=== PATIENT | male | born 1960 | race Caucasian/White ===

== ENCOUNTER 2021-04-27 10:15 | Inpatient (IN) | payer OTHER ==
[~2021-04-27] VITALS: Ht 180.3 cm; Wt 106.6 kg
[~2021-04-27 10:15] MED LIST: GLYBURIDE 5 MG T5 M1; LISINOPRIL5 MG; LYRICA 50 MG50 M1 PO; METFORMIN HCL500 MG; VICODIN 5-5001 EACH PO
[2021-04-27 10:31] VITALS: BP 100/58
[2021-04-27 11:30] LABS: HEMOGLOBIN 14.9 gm/dL (14.0-18.0); MCH 28.6 pg (26.0-34.0); MCV 86.6 fL (80.0-100.0); MPV 7.6 fl. (7.2-11.1); NUCLEATED RBCS 0 /100WBC; PLATELET COUNT* 373 thou/uL (150-400); WBC 23.4 thou/uL (4.0-11.0)
[2021-04-27 11:51] LABS: CALCIUM 9.7 mg/dL (8.5-10.1); CREATININE 1.1 mg/dL (0.6-1.3); POTASSIUM 4.1 mmol/L (3.5-5.1)
[2021-04-27 11:56] LABS: ALBUMIN 2.9 g/dL (3.4-5.0); TOTAL BILIRUBIN 1.2 mg/dL (<0.1-1.0); TOTAL PROTEIN 8.4 g/dL (6.4-8.2)
[2021-04-27 12:22] LABS: ABSOLUTE LYMPHOCYTES 1.4 thou/uL (0.8-5.3); ABSOLUTE MONOCYTES 1.6 thou/uL (0.0-1.2); ABSOLUTE NEUTROPHILS 20.4 thou/uL (1.6-8.1); PLATELET ESTIMATE ADEQUATE
[2021-04-27 12:23] LABS: ANISOCYTOSIS 1+; LARGE PLATELETS RARE; POIKILOCYTOSIS 1+
--- NOTE | 2021-04-27 16:02 | NUR ---
PT PLACED ON HOSPITAL BED
[2021-04-27 18:46] VITALS: BP 111/57
[2021-04-27 20:30] VITALS: BP 117/56
[2021-04-27] MEDS ORDERED: GABAPENTIN600 M1 PO (20:42)
[2021-04-27] MEDS ORDERED: CARVEDILOL6.25 M1 PO (20:44)
[2021-04-27] MEDS ORDERED: TRULICITY1.5 MG/0.5 PO (20:45)
[2021-04-27] MEDS ORDERED: FUROSEMIDE 20 M20 MG PO (20:47)
[2021-04-27] MEDS ORDERED: VASCEPA1 GM PO (20:48)
[2021-04-28 00:30] VITALS: BP 88/37
[2021-04-28 04:16] LABS: CALCIUM 8.5 mg/dL (8.5-10.1); POTASSIUM 3.7 mmol/L (3.5-5.1)
[2021-04-28 04:17] VITALS: BP 99/63
[2021-04-28 04:23] LABS: ABSOLUTE BASOPHILS 0.1 thou/uL (0.0-0.2); ABSOLUTE EOSINOPHILS 0.1 thou/uL (0.0-0.7); ABSOLUTE LYMPHOCYTES 1.9 thou/uL (0.8-5.3); ABSOLUTE MONOCYTES 1.6 thou/uL (0.0-1.2); ABSOLUTE NEUTROPHILS 13.2 thou/uL (1.6-8.1); BASOPHILS 0.3 %; EOSINOPHILS 0.6 %; HEMATOCRIT 38.4 % (42.0-52.0); LYMPHOCYTES 11.4 %; MCH 28.6 pg (26.0-34.0); MCHC 33.3 g/dL (28.0-37.0); MCV 86.1 fL (80.0-100.0); MONOCYTES 9.5 %; MPV 7.3 fl. (7.2-11.1); NUCLEATED RBCS 0 /100WBC; POLYS 78.2 %; RBC 4.46 mil/uL (4.50-6.00); RDW-CV 13.8 % (10.5-14.5); WBC 16.9 thou/uL (4.0-11.0)
[2021-04-28 04:28] LABS: HEMOGLOBIN 12.8 gm/dL (14.0-18.0); PLATELET COUNT* 282 thou/uL (150-400)
--- NOTE | 2021-04-28 05:02 | NUR ---
PT HAS RIGHT FOOT ELEVATED, DRESSING C/D/I. TYLENOL/NORCO FOR PAIN, HE HAS SLEPT WELL THIS SHIFT. RECEIVED 2X DOSES VANCOMYCIN SCHEDULED. IS ABLE TO AMBULATE TO RESTROOM. ALERT AND ORIENTED, ROOM AIR. REPORTS A HEADACHE WELL AND PAIN 8/10 ON RIGHT FOOT. WILL CONTINUE TO MONITOR.
[2021-04-28 08:00] VITALS: BP 112/63
--- NOTE | 2021-04-28 09:40 | NUR ---
CM ASSESSMENT: PT A&O, INDEPENDENT WITH ADL'S, ACTIVE AND WORKS OUTSIDE THE HOME. PT RESIDES AT HOME WITH SPOUSE. PT USES 0 DME. PT HAS 0 HX OF HH OR SNF. CM D/C PLANNING NEEDS FOR THIS PT ARE TBD AT THIS TIME, BUT MAY INCLUDE IV ABT'S AND HH. CM WILL REMAIN AVAILABLE TO ASSIST AND FOLLOW NEEDED.
--- NOTE | 2021-04-28 10:36 | NUR ---
The patient is alert and orienated x4. Denies pain. Dressing intact to right foot. Call light wihtin reach. No distress noted.
--- NOTE | 2021-04-28 11:26 | NUR ---
Dr Kwon here to see the patient. New orders for MRI today and NPO after midnight. The patient is aware of all new orders. Questionkhurram completed.
--- NOTE | 2021-04-28 14:45 | NUR ---
The MD was made aware of postive blood cultures of strep group b.
--- NOTE | 2021-04-28 15:31 | NUR ---
Family at the bedside. Denies pain. He's sitting in the recliner. No distress noted. Dressing to right foot C/D/I.
[2021-04-28 17:05] VITALS: BP 125/71
[2021-04-28 20:30] VITALS: BP 113/55
[2021-04-29] VITALS: BP 96/56
--- NOTE | 2021-04-29 04:05 | NUR ---
PT REPORTED HEADACHE, DID WELL WITH ZOFRAN AND NORCO BEFORE BED. UP TO RESTROOM ON OWN. NPO SINCE MIDNIGHT. SLEPT WELL ALL SHIFT. RECEIVED ALL MEDS AND ABX ORDERED. SURGERY FOR 8:30 AM
[2021-04-29 04:25] LABS: ABSOLUTE BASOPHILS 0.1 thou/uL (0.0-0.2); ABSOLUTE EOSINOPHILS 0.2 thou/uL (0.0-0.7); ABSOLUTE MONOCYTES 1.3 thou/uL (0.0-1.2); BASOPHILS 0.8 %; EOSINOPHILS 0.9 %; HEMATOCRIT 39.1 % (42.0-52.0); LYMPHOCYTES 11.5 %; MCH 28.2 pg (26.0-34.0); MCHC 33.2 g/dL (28.0-37.0); MONOCYTES 7.3 %; NUCLEATED RBCS 0 /100WBC; PLATELET COUNT* 280 thou/uL (150-400); POLYS 79.5 %; RDW-CV 13.9 % (10.5-14.5); WBC 17.6 thou/uL (4.0-11.0)
[2021-04-29 04:48] LABS: ALBUMIN 2.1 g/dL (3.4-5.0); CALCIUM 8.5 mg/dL (8.5-10.1); CREATININE 0.8 mg/dL (0.6-1.3); POTASSIUM 3.4 mmol/L (3.5-5.1); TOTAL BILIRUBIN 0.6 mg/dL (<0.1-1.0); TOTAL PROTEIN 6.5 g/dL (6.4-8.2)
--- NOTE | 2021-04-29 10:15 | EKG ---
[place] [address] ELECTROCARDIOGRAM REPORT Name: DARRYL MALLOY Room: [address] ADM IN M.R.#: [id number] Admission: 04/27/21 Attend Phys: Vimal Owens, Discharge: Date of : 62 Date of Service: 04/29/21 0816 Report #: [id number] THIS REPORT FOR: //name// [facility] Test Date: 2021-04-29 Test Time: 08:16:55 Pat Name: DARRYL MALLOY Department: Room: [address] Gender: M Lining Vamper: LAVELL : 1960 Requested By: Nash Finch Order Number: [id number] Reading MD: Elpidio Montiel Measurements Intervals [place] Rate: 74 P: 38 [place]: 162 QRS: -32 QRSD: 108 T: 17 QT: 399 QTc: 443 Interpretive Statements Sinus rhythm Ventricular premature complex Left axis deviation Low voltage, precordial leads Abnormal R-wave progression, early transition Compared to ECG 09/27/2009 16:50:43 Ventricular premature complex(es) now present Low QRS voltage now present Electronically Signed On 04-29-2021 10:14:59 CDT by Elpidio Montiel [email or web address] <ELECTRONICALLY SIGNED> By: Elpidio Montiel MD, [facility] 04/29/21 1014 5 5 Elpidio Montiel MD, [facility] /EPI
--- NOTE | 2021-04-29 10:58 | NUR ---
The patient returned to the floor.Denies pain. alert. Call light within reach.
[2021-04-29 11:01] VITALS: BP 117/57
--- NOTE | 2021-04-29 14:28 | NUR ---
informed of labs results.
[2021-04-29 16:28] VITALS: BP 117/56
[2021-04-29 21:11] VITALS: BP 111/64
[2021-04-30 02:45] VITALS: BP 117/68
[2021-04-30 06:02] VITALS: BP 106/62
[2021-04-30 06:03] LABS: MCH 28.2 pg (26.0-34.0); MCHC 33.4 g/dL (28.0-37.0); MCV 84.5 fL (80.0-100.0); RBC 4.62 mil/uL (4.50-6.00); RDW-CV 13.7 % (10.5-14.5); WBC 15.3 thou/uL (4.0-11.0)
[2021-04-30 06:22] LABS: ALBUMIN 1.9 g/dL (3.4-5.0); CALCIUM 8.3 mg/dL (8.5-10.1); CREATININE 0.7 mg/dL (0.6-1.3); POTASSIUM 3.4 mmol/L (3.5-5.1); TOTAL BILIRUBIN 0.6 mg/dL (<0.1-1.0); TOTAL PROTEIN 6.4 g/dL (6.4-8.2)
--- NOTE | 2021-04-30 07:02 | NUR ---
PATIENT HAS REMAINED ALERT AND ORIENTED X 4 THROUGHOUT THE SHIFT AND RESTING QUIETLY ON HOURLY ROUNDS. DRESSING AND SURGICAL SHOE CLEAN AND DRY RIGHT FOOT. TOLERABLE PAIN AND DID NOT WANT INTERVENTION. VITAL SIGNS STABLE. MEDS/ANTIBIOTICS PER ORDER. FALL PRECAUTIONS IN PLACE. CONTINUE TO MONITOR.
[2021-04-30 08:00] VITALS: BP 117/61
--- NOTE | 2021-04-30 11:22 | NUR ---
The patient is alert. Able to make needs known. Denies pain. Transfers to the BSC. Dressing to right foot is intact. He remains non weight bearing to the right foot.
[2021-04-30 16:00] VITALS: BP 134/74
--- NOTE | 2021-04-30 16:07 | NUR ---
POC UPDATE: PT WILL REMAIN HOSPITALIZED THROUGH THE WEEKEND, PICC LINE WILL BE PLACED ID [employer] UTILITY CLERK ABX WILL BE NEEDED D/T "SIGNIFICANT INFECTION."
[2021-05-01 01:00] VITALS: BP 111/66
[2021-05-01 05:45] VITALS: BP 114/59
--- NOTE | 2021-05-01 05:50 | NUR ---
PT STATES HE SLEPT WELL OVERNIGHT. UP INDEP TO BSC TO VOID, BM LAST NIGHT. NWB TO RLE, POST OP SHOE WHEN AWAKE. AOX4, ABLE TO USE SAUCEDO TO MAKE NEEDS KNOWN. RU SL PICC, AM LAB DRAWN AND ABX INFUSED ORDERED.HS ACCUCHECK 275, INSULIN GIVEN ORDERED. LUDIN CDI TO RLE.
[2021-05-01 08:00] VITALS: BP 134/48
[2021-05-01 20:00] VITALS: BP 121/57
[2021-05-02 03:39] VITALS: BP 115/64
[2021-05-02 06:38] LABS: HEMATOCRIT 36.5 % (42.0-52.0); HEMOGLOBIN 12.4 gm/dL (14.0-18.0); MCH 28.8 pg (26.0-34.0); MCHC 33.8 g/dL (28.0-37.0); MPV 7.4 fl. (7.2-11.1); RBC 4.3 mil/uL (4.50-6.00); RDW-CV 14.2 % (10.5-14.5); WBC 10.4 thou/uL (4.0-11.0)
[2021-05-02 06:54] LABS: ALBUMIN 1.8 g/dL (3.4-5.0); CALCIUM 8.2 mg/dL (8.5-10.1); CREATININE 0.6 mg/dL (0.6-1.3); MAGNESIUM 1.9 mg/dL (1.8-2.4); POTASSIUM 3.3 mmol/L (3.5-5.1); TOTAL BILIRUBIN 0.4 mg/dL (<0.1-1.0); TOTAL PROTEIN 6.3 g/dL (6.4-8.2)
[2021-05-02 09:00] VITALS: BP 112/45
[2021-05-02 11:57] VITALS: BP 110/57
[2021-05-02 16:16] VITALS: BP 115/49
[2021-05-02 20:00] VITALS: BP 102/46
[2021-05-03 03:20] VITALS: BP 105/80
--- NOTE | 2021-05-03 05:20 | NUR ---
PT ALERT ORIENTED. UP WITH ASSIST. MED SURG STATUS. WOUND TO R FOOT. NPO AT MN FOR I&D. HYDROCODONE GIVEN HS FOR PAIN.
[2021-05-03 06:13] VITALS: BP 105/80
--- NOTE | 2021-05-03 07:02 | NUR ---
PT TO SURGERY FOR I&D OF R FOOT. NPO SINCE MN.
[2021-05-03 08:15] VITALS: BP 119/64
[2021-05-03 08:35] LABS: ABSOLUTE BASOPHILS 0.1 thou/uL (0.0-0.2); ABSOLUTE EOSINOPHILS 0.2 thou/uL (0.0-0.7); ABSOLUTE LYMPHOCYTES 2.5 thou/uL (0.8-5.3); ABSOLUTE MONOCYTES 0.7 thou/uL (0.0-1.2); ABSOLUTE NEUTROPHILS 7.2 thou/uL (1.6-8.1); BASOPHILS 0.6 %; EOSINOPHILS 1.9 %; HEMATOCRIT 33.3 % (42.0-52.0); HEMOGLOBIN 12.1 gm/dL (14.0-18.0); LYMPHOCYTES 23.3 %; MCH 30.6 pg (26.0-34.0); MCHC 36.4 g/dL (28.0-37.0); MONOCYTES 6.9 %; MPV 7.3 fl. (7.2-11.1); NUCLEATED RBCS 0 /100WBC; PLATELET COUNT* 267 thou/uL (150-400); POLYS 67.3 %; RBC 3.97 mil/uL (4.50-6.00); WBC 10.6 thou/uL (4.0-11.0)
[2021-05-03 08:45] LABS: ALBUMIN 1.7 g/dL (3.4-5.0); CREATININE 0.7 mg/dL (0.6-1.3); POTASSIUM 3.1 mmol/L (3.5-5.1); TOTAL BILIRUBIN 0.4 mg/dL (<0.1-1.0); TOTAL PROTEIN 6.1 g/dL (6.4-8.2)
--- NOTE | 2021-05-03 15:06 | NUR ---
POC UPDATE: PODIATRY FOLLOWING. PT HAVING 3RD DEBRIDEMENT. PT WILL POSS D/C WITH HH AND WOUND CARE NEEDS.
[2021-05-03 16:00] VITALS: BP 117/62
[2021-05-04] VITALS (7 sets, daily range): BP systolic 89–123; BP diastolic 41–62
[2021-05-04 06:49] LABS: ABSOLUTE BASOPHILS 0.1 thou/uL (0.0-0.2); ABSOLUTE LYMPHOCYTES 1.5 thou/uL (0.8-5.3); ABSOLUTE MONOCYTES 0.7 thou/uL (0.0-1.2); ABSOLUTE NEUTROPHILS 8.9 thou/uL (1.6-8.1); BASOPHILS 0.8 %; EOSINOPHILS 0.2 %; HEMATOCRIT 36.1 % (42.0-52.0); HEMOGLOBIN 11.9 gm/dL (14.0-18.0); LYMPHOCYTES 13.5 %; MCH 28.1 pg (26.0-34.0); MCHC 32.9 g/dL (28.0-37.0); MCV 85.3 fL (80.0-100.0); MONOCYTES 6.3 %; MPV 7.1 fl. (7.2-11.1); NUCLEATED RBCS 0 /100WBC; PLATELET COUNT* 299 thou/uL (150-400); POLYS 79.2 %; RBC 4.23 mil/uL (4.50-6.00); RDW-CV 13.7 % (10.5-14.5); WBC 11.3 thou/uL (4.0-11.0)
[2021-05-04 07:03] LABS: PREALBUMIN 11.2 mg/dL (18.0-35.7)
[2021-05-04 07:04] LABS: ALBUMIN 1.9 g/dL (3.4-5.0); CALCIUM 8.2 mg/dL (8.5-10.1); CREATININE 0.8 mg/dL (0.6-1.3); POTASSIUM 3.4 mmol/L (3.5-5.1); TOTAL BILIRUBIN 0.4 mg/dL (<0.1-1.0); TOTAL PROTEIN 6.6 g/dL (6.4-8.2)
--- NOTE | 2021-05-04 08:50 | NUR ---
PATIENT SLEPT MOST OF THE NIGHT. IV ANTIBIOTICS WERE GIVEN ORDERED. PATIENT HAD NO COMPLAINTS OF PAIN. WOUND VAC REMAINS TO RIGHT FOOT. WILL CONTINUE TO MONITOR.
--- NOTE | 2021-05-04 13:11 | PATH ---
[address] [address] PATHOLOGY RPT PROCEDURE Name: ALBERTO CURRY Room: [address] IN .R.#: [id number] Admission: 04/27/21 Date of : 62 Discharge: Report #: [id number] Path Case #: [id number] LCA Accession Number: [id number] . 01 Material submitted: . foot - TISSUE RIGHT FOOT. Modifiers: right . 01 Clinical history: . SEPSIS, RIGHT FOOT CELLULITIS, RT FOOT DIABETIC ULCER . 02 Diagnosis: Tissue right foot: - Acutely inflamed and necrotic benign fibrofatty/fibrovascular connective tissue. (JANICE/db; 05/03/2021) LBQ 05/03/2021 1805 Local . 02 Electronically signed: . Aden Wilkins MD, Pathologist NPI- [id number] . 01 Gross description: . Received in formalin labeled "Alberto Curry, tissue right foot" are multiple irregular, nagel brown fragments of soft tissue measuring in aggregate 2.1 x 1.1 x 0.9 cm. Specimen is sectioned to reveal a dusky, nagel-brown cut surface. Specimen is entirely submitted in cassette A1.([facility]; 04/30/2021) . GZA/GZA 04/30/2021 0906 Local . 02 Pathologist provided ICD-10: M79.9 . 02 CPT . 327355 Specimen Comment: A courtesy copy of this report has been sent to [phone] Specimen Comment: [phone], Specimen Comment: Report sent to , DR WHITAKER / DR MARCELO Performed at: 01 [facility] [address], [place] [address] MD Heath Perez MD Phone: [phone] Performed at: 02 [facility] [address], [place], [place] [address] MD Aden Wilkins MD Phone: [phone]
--- NOTE | 2021-05-04 15:12 | NUR ---
WOUND NURSE: PATIENT SEEN TO ADDRESS WOUND VAC CORRECTLY IN PLACE AND WAS ORIGINALLY PLACED IN [facility] PER DR. SHANT DPM. PATIENT TO HAVE VAC DRESSING CHANGE TOMORROW. PATIENT INFORMED BY THIS NURSE. WILL ADDRESS LT FOOT WOUND FURTHER WHEN NONREMOVABLE DRESSING CHANGED TOMORROW.
--- NOTE | 2021-05-04 16:02 | NUR ---
ASSUMED PT CARE AT 0730. PT IS A&OX4, COOPERATIVE AND PLEASANT. VISITING MOST OF THE DAY AND ASSITED PT WITH BEDBATH. DRESSING TO R FOOT IS DRY AND INTACT AND WOUND VAC IS FUNCTIONING PROPERLY. ASSESSMENT COMPLETED. MEDICATIONS ADMINISTERED ORDERED. PT VOICES NO CONCERNS AT HIS TIME.
--- NOTE | 2021-05-04 16:07 | NUR ---
POC UPDATE: NECROTIC FOOT, PODIATRY NEEDS TO CLEAR FOR DC. PT WILL NEED PICC. AND WOUND CARE PT HAD 3RD DEBRIDEMENT YESTERDAY.
[2021-05-05 00:08] VITALS: BP 111/64
--- NOTE | 2021-05-05 05:47 | NUR ---
PATIENT SLEPT MOST OF THE NIGHT. WOUND VAC REMAINS INTACT TO RIGHT FOOT. PATIENT HAD NO COMPLAINTS OF PAIN. PATIENT COULD DC TODAY. WILL CONTINUE TO MONITOR.
[2021-05-05 09:00] VITALS: BP 120/64
--- NOTE | 2021-05-05 11:25 | NUR ---
WOUND NURSE: PATIENT SEEN WITH DR. BRAN THIS MORNING AT 0815. WOUND VAC WAS REMOVED AND DISCONTINUED D/T FAILURE OF WOUND TO PROGRESS AND PRESENCE OF TISSUE NECROSIS. DISTAL MEDIAL ASPECT OF RIGHT FOOT WITH MOIST BLACKENED TISSUE PRESENT AND LAYERS OF NECROTIC SKIN PEELING AWAY. SURGERY PLANNED FOR TOMORROW AM FOR TMA. VAC DISCONTINUED. CLEANSED WITH WOUND CLEANSER AND GAUZE. APPLIED LAYER OF IODOSORB GEL UNDER 4X4'S UNDER ABD'S, WRAPPED WITH KERLEX UNDER GERALDO WRAP. ELEVATED ON PILLOW. TUBIGRIP ON LEFT FOR EDEMA CONTROL. PATIENT WAS WELL INSTRUCTED BY DR. BRAN REGARDING SURGICAL PLAN. PATIENT INSTRUCTED ON HEALTH PROMOTION MEASURES BY ME REGARDING NUTRITIONAL NEEDS AND TIGHT BLOOD GLUCOSE CONTROL TO PROMOTE HEALING. PATIENT STATES HE UNDERSTANDS. PHOTOS WERE TAKEN WHEN WOUND VAC REMOVED.
[2021-05-05 14:49] VITALS: BP 120/64
--- NOTE | 2021-05-05 15:34 | NUR ---
Case and plan of care reviewed with MD each weekday during patient's length of stay. Continue plan of care per MD orders for current dx extensive tissue necrosis, plan for further amputation Continue IV antibiotics Dopplers negative for DVT, increase diuretics Right upper extremity thrombophlebitis Cm will continue to follow for discharge plannign needs, anticipating IV Abx after hospitalization. Unsure if H w/ HH or SNU for IV Abx. ARU also discussed post amputation but no decision made today.
[2021-05-05 15:54] VITALS: BP 102/56
--- NOTE | 2021-05-05 18:52 | NUR ---
ASSUMED PT CARE AT 0730. PT IS A&OX4. ASSESSMENT COMPLETED. WOUND NURSE CHANGED DRESSING TO RIGHT FOOT. PT TO HAVE SURGERY IN THE AM FOR PARTIAL FOOT AMPUTATION. ALLOWED PT TO EXPRESS CONCERNS AND OFFERED EMOTIONAL SUPPORT. PT IS UP TO THE BSC. HERE VISITING THIS AFTERNOON. MEDICATIONS ADMINISTERED ORDERED.
[2021-05-05 20:15] VITALS: BP 121/57
[2021-05-06] VITALS: BP 123/68
[2021-05-06 05:11] LABS: ABSOLUTE EOSINOPHILS 0.2 thou/uL (0.0-0.7); ABSOLUTE LYMPHOCYTES 2.3 thou/uL (0.8-5.3); ABSOLUTE MONOCYTES 0.7 thou/uL (0.0-1.2); ABSOLUTE NEUTROPHILS 5.2 thou/uL (1.6-8.1); BASOPHILS 0.4 %; EOSINOPHILS 1.8 %; HEMATOCRIT 35.2 % (42.0-52.0); HEMOGLOBIN 11.8 gm/dL (14.0-18.0); LYMPHOCYTES 27.5 %; MCH 28.4 pg (26.0-34.0); MCHC 33.5 g/dL (28.0-37.0); MCV 84.8 fL (80.0-100.0); MONOCYTES 8.5 %; NUCLEATED RBCS 0 /100WBC; PLATELET COUNT* 276 thou/uL (150-400); POLYS 61.8 %; RBC 4.15 mil/uL (4.50-6.00); RDW-CV 13.8 % (10.5-14.5); WBC 8.3 thou/uL (4.0-11.0)
[2021-05-06 05:23] VITALS: BP 105/80
[2021-05-06 05:35] LABS: CALCIUM 8.2 mg/dL (8.5-10.1); CREATININE 0.8 mg/dL (0.6-1.3); POTASSIUM 3.1 mmol/L (3.5-5.1); TOTAL BILIRUBIN 0.4 mg/dL (<0.1-1.0); TOTAL PROTEIN 6.4 g/dL (6.4-8.2)
--- NOTE | 2021-05-06 06:00 | NUR ---
PATIENT PART OF THE NIGHT. DRESSING REMAINS INTACT TO RIGHT FOOT. PATIENT HAS BEEN NPO SINCE MIDNIGHT FOR SURGERY THIS MORNING. WILL CONTINUE TO MONITOR.
[2021-05-06 09:54] LABS: HEMATOCRIT 33.3 % (42.0-52.0); HEMOGLOBIN 11.1 gm/dL (14.0-18.0)
--- NOTE | 2021-05-06 13:32 | NUR ---
POC UPDATE: PT WILL HAVE FOOT AMPUTATED TODAY. PT WILL MORE THAN LIKELY NEED IV ABX.
[2021-05-06 16:00] VITALS: BP 106/50
--- NOTE | 2021-05-06 18:38 | NUR ---
ASSUMED PT CARE AT 0730. PT DOWN FOR SURGERY TODAY FOR A R FOOT PARTIAL AMPUTATION. DRESSING TO RIGHT FOOT IS DRY AND INTACT. R FOOT IS ELEVATED 45 DEGREES. ASSESSMENT COMPLETED POST SURGERY, WOIFE WITH PT. PT DENIES ANY PAIN AND/OR DISCOMFORT. MEDICATIONS ADMINISTEREDA S ORDERED.
[2021-05-06 20:30] VITALS: BP 98/49
--- NOTE | 2021-05-07 02:29 | NUR ---
ASSUMED CARE OF PT FROM DAY SHIFT, PT RESTING IN BED, RIGHT LEG WITH DRESSING INTACT PT LEG ELEVATED, C/O PAIN , MEDICATON GIVEN ORDERED. DISCUSSED PLAN OF CARE AND PT VERBALIZED UNDERSTANDING. WILL REPORT CHANGES.
[2021-05-07 06:06] LABS: ABSOLUTE EOSINOPHILS 0.2 thou/uL (0.0-0.7); ABSOLUTE LYMPHOCYTES 2.8 thou/uL (0.8-5.3); ABSOLUTE MONOCYTES 0.8 thou/uL (0.0-1.2); ABSOLUTE NEUTROPHILS 6.9 thou/uL (1.6-8.1); BASOPHILS 0.4 %; EOSINOPHILS 1.7 %; HEMATOCRIT 29.7 % (42.0-52.0); HEMOGLOBIN 10.1 gm/dL (14.0-18.0); LYMPHOCYTES 26.4 %; MCH 28.3 pg (26.0-34.0); MCHC 34.1 g/dL (28.0-37.0); MCV 83.1 fL (80.0-100.0); MONOCYTES 7.4 %; MPV 7.1 fl. (7.2-11.1); NUCLEATED RBCS 0 /100WBC; PLATELET COUNT* 291 thou/uL (150-400); POLYS 64.1 %; RBC 3.57 mil/uL (4.50-6.00); RDW-CV 13.8 % (10.5-14.5); WBC 10.7 thou/uL (4.0-11.0)
[2021-05-07 06:23] LABS: CALCIUM 8.1 mg/dL (8.5-10.1); CREATININE 0.8 mg/dL (0.6-1.3); POTASSIUM 3.3 mmol/L (3.5-5.1); TOTAL BILIRUBIN 0.4 mg/dL (<0.1-1.0); TOTAL PROTEIN 5.8 g/dL (6.4-8.2)
[2021-05-07 08:29] VITALS: BP 90/54
--- NOTE | 2021-05-07 13:37 | NUR ---
WOUND NURSE: DR. BRAN CHANGED DRESSING THIS MORNING AROUND 0815 WITH THIS NURSE PRESENT. THE WOUND WAS ALSO MEASURED AND PHOTOGRAPHED AND ADDED TO PATIENT'S CHART. DRESSING TO BE CHANGED THIS WEEKEND BY A RESIDENT. DR. BRAN PLANS TO SEE PATIENT LATE MONDAY PM.
--- NOTE | 2021-05-07 15:14 | NUR ---
Case and plan of care reviewed with MD each weekday during patient's length of stay. Continue plan of care per MD orders for current dx. POD 1 post amputation partical foot. Drs feel additional surgery maybe needed, will watch over the weekend and further decision made on Monday05/10/21. Wound care, IV Antibx continued CM will continue to follow for discharge planning needs.
[2021-05-07 16:00] VITALS: BP 107/56; BP 164/71
--- NOTE | 2021-05-07 19:39 | NUR ---
ASSUMED PT CARE AT 0730. PT IS PLEASANTLY A&OX4. ASSESSMENT COMPLETED. R FOOT ELEVATED 45 DEGREES. DRESSING CHANGED BY PHYSICIAN AND WOUND NURSE TODAY AND TO ONLY BE CHANGED BY PHYSICIAN OR WOUND NURSE.PT VOICES NO CONCERN AT THIS TIME AND DENIES ANY PAIN.
[2021-05-08 01:30] VITALS: BP 88/46
[2021-05-08 06:49] LABS: ABSOLUTE BASOPHILS 0.1 thou/uL (0.0-0.2); ABSOLUTE EOSINOPHILS 0.2 thou/uL (0.0-0.7); ABSOLUTE LYMPHOCYTES 2.8 thou/uL (0.8-5.3); ABSOLUTE MONOCYTES 0.8 thou/uL (0.0-1.2); ABSOLUTE NEUTROPHILS 6.1 thou/uL (1.6-8.1); BASOPHILS 0.7 %; EOSINOPHILS 2.2 %; HEMATOCRIT 29.3 % (42.0-52.0); HEMOGLOBIN 10.2 gm/dL (14.0-18.0); LYMPHOCYTES 28.4 %; MCH 28.5 pg (26.0-34.0); MCHC 34.6 g/dL (28.0-37.0); MCV 82.4 fL (80.0-100.0); MONOCYTES 7.6 %; NUCLEATED RBCS 0 /100WBC; PLATELET COUNT* 293 thou/uL (150-400); POLYS 61.1 %; RBC 3.56 mil/uL (4.50-6.00); RDW-CV 13.6 % (10.5-14.5)
[2021-05-08 07:10] LABS: CALCIUM 8.1 mg/dL (8.5-10.1); CREATININE 0.8 mg/dL (0.6-1.3); POTASSIUM 3.6 mmol/L (3.5-5.1); TOTAL BILIRUBIN 0.4 mg/dL (<0.1-1.0); TOTAL PROTEIN 6.2 g/dL (6.4-8.2)
[2021-05-08 08:00] VITALS: BP 96/49
[2021-05-08 16:00] VITALS: BP 105/51
--- NOTE | 2021-05-08 19:04 | NUR ---
PATIENT HAD A QUIET DAY. DOES HAVE PIC RIGHT UPPER ARM, AND REMAINS PATIENT. PATIENT USES BEDSIDE COMMODE, AND HAD BM TODAY. NO PROBLEM WITH VOIDING. DRESSING CHANGE THIS AM BY . CONTINUE BLOOD SUGARS AC AND HS. BLOOD SUGAR RUNNING 180 TO 200 RANGE.
[2021-05-08 20:12] VITALS: BP 92/48
[2021-05-09] VITALS (8 sets, daily range): BP systolic 86–124; BP diastolic 45–67
--- NOTE | 2021-05-09 05:33 | NUR ---
PATIENT HAS REMAINED ALERT AND ORIENTED X 4 THROUGHOUT THE SHIFT AND RESTING QUIETLY ON HOURLY ROUNDS. UP TO BSC SBA FOR VOIDS. NO BM'S THIS SHIFT. NWB RLE. ELEVATED ON PILLOW. DRESSING RIGHT FOOT CLEAN AND DRY. MEDS PER ORDER. MEDICATED X 1 FOR PAIN TO GOOD EFFECT. CONTINUE TO MONITOR.
--- NOTE | 2021-05-09 09:30 | NUR ---
THIS NURSE AGREES WITH MAYTE NAPOLES RN ASSESSMENT.
[2021-05-09 17:11] LABS: % SATURATION 19 % (20-39); IRON 36 ug/dL (50-175)
--- NOTE | 2021-05-09 18:07 | NUR ---
PATIENT HAS BEEN RESTING IN BED. USING BEDSIDE COMMODE. NO COMPLAINTS OF PAIN OR DISCOMFORT THIS SHIFT. DRESSING TO RIGHT FOOT REMAINS C/D/I. WAS AT BEDSIDE AND ASSISTED WITH BATHING AND WASHING HAIR. EVENING BP WAS 86/48 ASYMPTOMATIC. RECHECKED 117/48.
[2021-05-10 00:01] VITALS: BP 105/61
[2021-05-10 06:08] LABS: HEMATOCRIT 31.1 % (42.0-52.0); HEMOGLOBIN 10.5 gm/dL (14.0-18.0); MCH 27.9 pg (26.0-34.0); MCHC 33.6 g/dL (28.0-37.0); MCV 82.9 fL (80.0-100.0); MPV 7.2 fl. (7.2-11.1); RBC 3.76 mil/uL (4.50-6.00); RDW-CV 14.1 % (10.5-14.5); WBC 8.7 thou/uL (4.0-11.0)
[2021-05-10 06:20] LABS: ALBUMIN 2.2 g/dL (3.4-5.0); CALCIUM 8.7 mg/dL (8.5-10.1); CREATININE 0.8 mg/dL (0.6-1.3); POTASSIUM 3.5 mmol/L (3.5-5.1); TOTAL BILIRUBIN 0.3 mg/dL (<0.1-1.0); TOTAL PROTEIN 6.8 g/dL (6.4-8.2)
--- NOTE | 2021-05-10 06:31 | NUR ---
PATIENT HAS REMAINED ALERT AND ORIENTED X 4 THROUGHOUT THE SHIFT AND RESTING QUIETLY ON HOURLY ROUNDS. DRESSING RIGHT FOOT CLEAN AND DRY. VITAL SIGNS STABLE. MEDICATED FOR PAIN X 1 TO GOOD EFFECT. CONTINUE TO MONITOR.
[2021-05-10 08:00] VITALS: BP 117/68
--- NOTE | 2021-05-10 15:29 | NUR ---
BARRIERS TO D/C INCLUDE PT CONT ON ROCEPHIN, WOUND CARE FOLLOWING AND PODIATRY NEEDS TO CLEAR PT FOR DC.
[2021-05-10 16:00] VITALS: BP 92/52
--- NOTE | 2021-05-10 18:41 | NUR ---
PATIENT RESTING IN BED. BLOOD SUGARS MONITORED, INSULIN GIVEN ORDERED. PICC TO UPPER RIGHT ARM, SINGLE LUMEN, SALINE LOCKED, PATENT. INCISION TO RIGHT FOOT, UNABLE TO ASSESS DUE TO DRESSING. DRESSING TO BE ONLY CHANGED BY WOUND CARE NURSE OR SURGEON. DRESSING C/D/I. ALERT AND ORIENTED X4. BED IN LOW/LOCKED POSITION. CALL LIGHT WITHIN REACH. NO QUESTIONS OR COCNERNS VOICED.
[2021-05-10 19:50] VITALS: BP 100/56
--- NOTE | 2021-05-11 04:42 | NUR ---
PT A&O X 4, ON RA. MEDS GIVEN ORDERED. DRESSING TO RT FOOT INTACT. NORCO GIVEN X 1 FOR PAIN. NPO SINCE MIDNIGHT FOR SURGERY. CALL LIGHT WITHIN REACH. WILL CONTINUE TO MONITOR.
[2021-05-11 10:40] VITALS: BP 109/64
[2021-05-11 11:22] VITALS: BP 109/64
--- NOTE | 2021-05-11 17:03 | NUR ---
ASSUMED PT CARE WHEN PT RETURNED FROM SURGERY OF R FOOT. PT DENIED ANY PAIN OR DISCOMFORT. R FOOT ELEVATED 45 DEGREES. SCD TO L FOOT. PT UP INDEPENDENTLY TO BSC ONLY. NON WEIGHT BEARING ON R FOOT. ASSESSMENT COMPLETED. MEDICATIONS ADMINISTERED ORDERED. PT DENIES ANY CONCERNS OR PAIN. PT VERBALIZES SAFETY MEASURES TO PROMOTE SAFETY, DRESSING TO R FOOT IS DRY AND INTACT.
--- NOTE | 2021-05-11 18:01 | NUR ---
PODIATRY FOLLOWING. PT WILL NEED TO D/C WITH IV ABX ONCE MEDICALLY STABLED FOR DC.
[2021-05-11 20:15] VITALS: BP 93/48
[2021-05-12 00:31] VITALS: BP 88/50
[2021-05-12 04:27] VITALS: BP 92/58
[2021-05-12 08:32] VITALS: BP 99/59
[2021-05-12 10:00] VITALS: BP 99/59
--- NOTE | 2021-05-12 14:25 | NUR ---
ASSUMED PT CARE AT 0730. PT IS PLEASANTLY A&O X4. PT SITTING UP IN BED WITH R FOOT ELEVATED 45DEGREES, DRESSING IS DRY AND INTACT. PT DENIES ANY PAIN AT THIS TIME. ASSESSMENT COMPLETED. VSS. SAFETY MEASURES IN PLACE. PT UP TO BSC. NON WEIGHT BEARING ON R FOOT. MEDICATIONS ADMINISTERED ORDERED.
--- NOTE | 2021-05-12 15:00 | NUR ---
PLAN OF CARE: PHYSICIAN INFORMS THAT THE PT WILL NEED 6 WEEKS IV ABT'S AT D/C. PT INFORMS THAT HIS SPOUSE IS ABLE TO ASSIST WITH IV ABT'S AT D/C. CM FAXED PT'S CLINICAL INFO TO [facility] TO OBTAIN COST OF IV ABT'S AT D/C. CM AWAITING A CALLBACK FROM [facility]. CM WILL REMAIN AVAILABLE TO ASSIST AND FOLLOW NEEDED.
[2021-05-12 16:00] VITALS: BP 92/48
[2021-05-12 20:10] VITALS: BP 95/48
[2021-05-13 00:58] VITALS: BP 110/62
--- NOTE | 2021-05-13 04:16 | NUR ---
ASSUMED CARE OF PT AT 1900. PT IS ALERT AND ORIENTED. VSS. PERLAZARO. PT IS ON ROOM AIR. PT IS SLEEPING QUIETLY IN BED. RESPIRATIONS ARE EVEN AND NONLABORED. WILL CONTINUE TO MONITOR PT.
[2021-05-13 06:06] LABS: HEMATOCRIT 28.1 % (42.0-52.0); HEMOGLOBIN 9.4 gm/dL (14.0-18.0); MCH 27.9 pg (26.0-34.0); MCHC 33.6 g/dL (28.0-37.0); MCV 83.2 fL (80.0-100.0); MPV 6.9 fl. (7.2-11.1); RBC 3.38 mil/uL (4.50-6.00); RDW-CV 14.4 % (10.5-14.5); WBC 6.1 thou/uL (4.0-11.0)
[2021-05-13 06:13] LABS: CALCIUM 8.5 mg/dL (8.5-10.1); CREATININE 0.7 mg/dL (0.6-1.3); POTASSIUM 3.5 mmol/L (3.5-5.1)
--- NOTE | 2021-05-13 10:08 | PATH ---
[address] [address] PATHOLOGY RPT PROCEDURE Name: MELLISSAALBERTO Melissa Room: [address] IN .R.#: [id number] Admission: 04/27/21 Date of : 62 Discharge: Report #: [id number] Path Case #: [id number] LCA Accession Number: [id number] . 01 Material submitted: . foot - RIGHT FOREFOOT. Modifiers: right . 01 Clinical history: . AMPUTATION OF TOES . 02 Diagnosis: Right forefoot: - Benign forefoot with extensive acute inflammation and necrosis of soft tissues of great toe also with osteomyelitis of underlying phalangeal bones of great toe. Four separate segments of benign bone with reactive changes but no definite osteomyelitis. (JANICE:tory; 05/12/2021) QTP 05/12/2021 1528 Local . 02 Electronically signed: . Aden Wilkins MD, Pathologist NPI- [id number] . 01 Gross description: . The specimen is received in formalin, labeled "Alberto Curry, right forefoot" and consists of a right partially disrupted transmetatarsal amputation (11.0 x 9.7 x 6.2 cm) with 5 attached digits with only the 2nd-5th digits displaying attached nails. The nail is absent on the great toe. The transmetatarsal bone margins are firm and grossly unremarkable. Involving the dorsal surface, abutting the proximal aspect of the second digit, involving the entirety of the great toe and extending onto the medial aspect of the plantar surface is a brown, hemorrhagic, necrotic and slightly mummified ulcer (12.5 x 11.0 cm) with approximately 90% of the skin absent. The ulcer involves the surgical margin (inked black). The remaining nagel and dusky skin displays approximately 20%-30% skin slippage. Sectioning through the great toe reveals hemorrhagic but otherwise unremarkable underlying bone. . Also received separately, in the same container are 4 additional transmetatarsal amputated bone fragments (ranging from 0.6 cm in length x 1.3 cm in diameter to 1.4 cm in length x 1.2 cm in diameter) with minimal attached soft tissue and without articular surfaces. The ends are differentially inked, black and one of the following colors: red, yellow, blue and green. Sectioning reveals unremarkable cut surfaces. Box Hinge And Lock Attacher sections are submitted following decalcification as follows: . A1: Surgical margin to show proximity to ulcer, submitted en face, [place] [address] PATHOLOGY RPT PROCEDURE Name: ALBERTO CURRY Room: [address] ADM IN .R.#: [id number] Admission: 04/27/21 Date of : 62 Discharge: Report #: [id number] Path Case #: [id number] represented A2-A3: Ulcer, represented A4: Sloughing skin, represented A5: Cross section of great toe to show underlying bone, represented A6-A7: Transmetatarsal bone margins, submitted en face, represented A8-A9: Sections of additional separate bone segments, represented ([facility]; 05/06/2021) . A10-A11: Lengthwise sections of additional separate bone segments, submitted on edge, represented ([facility]; 05/10/2021) A12-A13: Perpendicular section of great toe bone at proximal end (black ink on proximal most end), submitted on edge, represented ([facility]; 05/10/2021) DKA/DKA 05/12/2021 1731 Local . 02 Pathologist provided ICD-10: L98.9, I96, M86.171 . 02 CPT . 922944, 749912 Specimen Comment: A courtesy copy of this report has been sent to [phone] Specimen Comment: Report sent to Specimen Comment: A duplicate report has been generated due to demographic updates. Performed at: 01 [facility] [address], [place], [place] [address] MD Heath Perez MD Phone: [phone] Performed at: 02 [facility] [address], [place], [place] [address] MD Aden Wilkins MD Phone: [phone]
[2021-05-13 13:57] VITALS: BP 95/54
[2021-05-13 16:16] VITALS: BP 119/56
[2021-05-13 16:52] VITALS: BP 95/54
--- NOTE | 2021-05-14 17:07 | PATH ---
[address] [address] PATHOLOGY RPT PROCEDURE Name: TIGISTANGIEALBERTO Melissa Room: [address] IN M.R.#: [id number] Admission: 04/27/21 Date of : 62 Discharge: 05/13/21 Report #: [id number] Path Case #: [id number] LCA Accession Number: [id number] . 01 Material submitted: . foot - RIGHT FOOT METATARSAL BONES. Modifiers: right, METATARSAL . 01 Clinical history: . HEEL CORD LENGTHENING ABSCESS SEPSIS, RT FOOT CELLULITIS, RT FOOT DIABETIC ULCER . 02 Diagnosis: Metatarsal bones right foot: - Five segments of benign and viable bone, each with fresh stromal hemorrhage at one end compatible with recent prior instrumentation and at same end showing evidence of osteomyelitis, and each with opposite bony surgical margin free of osteomyelitis. (JANICE/db; 05/14/2021) LBQ 05/14/2021 1504 Local . 02 Electronically signed: . Aden Wilkins MD, Pathologist NPI- [id number] . 01 Gross description: . The specimen is received in formalin, labeled "Alberto Curry, metatarsal bones right foot" that consists of 5 undesignated transmetatarsal amputated bone segments (ranging from 0.8 cm in length by 2.0 cm in diameter to 2.5 cm in length by 1.5 cm in diameter) with minimal attached soft tissue and without articular surfaces present. The cut surface ends on each bone segment is firm, smooth and unremarkable. One cut surface end on each segment is inked black with the opposing ends differentially, individually inked red, orange, yellow, blue and green. Sectioning through each bone segment reveals unremarkable cut surfaces. Wood Grainer lengthwise sections from each bone segment are submitted in A1-A5 following decalcification. ([place]; 05/12/2021) DKA/DKA 05/12/2021 [facility] Local . 02 Pathologist provided ICD-10: M86.8X7 . 02 CPT . 937445, 183557 Specimen Comment: A courtesy copy of this report has been sent to [phone] Specimen Comment: [phone], Specimen Comment: Report sent to , DR WHITAKER / [place] [address] PATHOLOGY RPT PROCEDURE Name: ALBERTO CURRY Room: [address] IN M.R.#: [id number] Admission: 04/27/21 Date of : 62 Discharge: 05/13/21 Report #: [id number] Path Case #: [id number] Performed at: 01 [facility] [place] [address], [place], [place] [address] MD Heath Perez MD Phone: [phone] Performed at: 02 [facility] [place] [address], [place], [place] [address] MD Aden Wilkins MD Phone: [phone]
[2021-05-15] MEDS ORDERED: ELIQUIS5 M1 PO (12:48)
[2021-05-15] MEDS ORDERED: ELIQUIS5 MG PO (12:48)
== END 2021-05-13 17:34 | disposition home health service (06) | DRG 854 ==
LOC: M.ERS 10:15 → M.TBA-ER 12:03 → M.2W 12:03
PROVIDERS: Family Medicine; Internal Medicine; Podiatrist Foot & Ankle Surgery; ADMIT Internal Medicine; ATTEND Internal Medicine
PROC: 0JBQ0ZZ Excision of Right Foot Subcutaneous Tissue and Fascia, Open Approach (ICD-10-PCS; principal; 2021-04-29)
PROC: B548ZZA Ultrasonography of Superior Vena Cava, Guidance (ICD-10-PCS; 2021-04-30)
PROC: 02HV33Z Insertion of Infusion Device into Superior Vena Cava, Percutaneous Approach (ICD-10-PCS; 2021-04-30)
PROC: B5181ZA Fluoroscopy of Superior Vena Cava using Low Osmolar Contrast, Guidance (ICD-10-PCS; 2021-04-30)
PROC: 0JXQ0ZZ Transfer Right Foot Subcutaneous Tissue and Fascia, Open Approach (ICD-10-PCS; 2021-05-03)
PROC: 2W1SX6Z Compression of Right Foot using Pressure Dressing (ICD-10-PCS; 2021-05-03)
PROC: 0JBQ0ZZ Excision of Right Foot Subcutaneous Tissue and Fascia, Open Approach (ICD-10-PCS; 2021-05-03)
PROC: 0Y6M0ZC Detachment at Right Foot, Partial 3rd Ray, Open Approach (ICD-10-PCS; 2021-05-06)
PROC: 0Y6M0ZF Detachment at Right Foot, Partial 5th Ray, Open Approach (ICD-10-PCS; 2021-05-06)
PROC: 0Y6M0ZB Detachment at Right Foot, Partial 2nd Ray, Open Approach (ICD-10-PCS; 2021-05-06)
PROC: 0Y6M0ZD Detachment at Right Foot, Partial 4th Ray, Open Approach (ICD-10-PCS; 2021-05-06)
PROC: 0Y6M0Z9 Detachment at Right Foot, Partial 1st Ray, Open Approach (ICD-10-PCS; 2021-05-06)
PROC: 0L8S0ZZ Division of Right Ankle Tendon, Open Approach (ICD-10-PCS; 2021-05-11)
PROC: 0JQQ0ZZ Repair Right Foot Subcutaneous Tissue and Fascia, Open Approach (ICD-10-PCS; 2021-05-11)
DX: A40.1 Sepsis due to streptococcus, group B (principal); L03.115 Cellulitis of right lower limb; E44.1 Mild protein-calorie malnutrition; L02.611 Cutaneous abscess of right foot; Z20.822 Contact with and (suspected) exposure to COVID-19; E11.621 Type 2 diabetes mellitus with foot ulcer; I80.8 Phlebitis and thrombophlebitis of other sites; D50.9 Iron deficiency anemia, unspecified; I95.1 Orthostatic hypotension; M21.961 Unspecified acquired deformity of right lower leg; Z68.32 Body mass index [BMI] 32.0-32.9, adult

== ENCOUNTER → 2021-05-24 | Outpatient (CLI) | payer OTHER ==
[~2021-05-24] MED LIST changes: +CARVEDILOL6.25 M1 PO; +ELIQUIS5 M1 PO; +ELIQUIS5 MG PO; +FUROSEMIDE 20 M20 MG PO; +GABAPENTIN600 M1 PO; +TRULICITY1.5 MG/0.5 PO; +VASCEPA1 GM PO
== END ==
LOC: M.WC 13:59
PROVIDERS: ATTEND Podiatrist Foot & Ankle Surgery
DX: T87.89 Other complications of amputation stump (principal); E11.621 Type 2 diabetes mellitus with foot ulcer; L97.513 Non-pressure chronic ulcer of other part of right foot with necrosis of muscle; E11.42 Type 2 diabetes mellitus with diabetic polyneuropathy; Z79.84 Long term (current) use of oral hypoglycemic drugs; Y92.238 Other place in hospital as the place of occurrence of the external cause; Y83.5 Amputation of limb(s) as the cause of abnormal reaction of the patient, or of later complication, without mention of misadventure at the time of the procedure

== ENCOUNTER → 2021-05-31 | Outpatient (CLI) | payer OTHER | LOC: M.WC 13:31 | PROVIDERS: ATTEND Podiatrist Foot & Ankle Surgery | DX: T87.89 Other complications of amputation stump (principal); E11.621 Type 2 diabetes mellitus with foot ulcer; L97.513 Non-pressure chronic ulcer of other part of right foot with necrosis of muscle; E11.42 Type 2 diabetes mellitus with diabetic polyneuropathy; Z79.84 Long term (current) use of oral hypoglycemic drugs; Y83.5 Amputation of limb(s) as the cause of abnormal reaction of the patient, or of later complication, without mention of misadventure at the time of the procedure ==

== ENCOUNTER → 2021-06-04 | Emergency (ER) | payer OTHER ==
[~2021-06-04] VITALS: Ht 177.8 cm; Wt 96.6 kg
[~2021-06-04] MED LIST changes: +ASA81BEC PO; +JARDIANCE10 MG PO
[2021-06-04 16:04] LABS: ABSOLUTE BASOPHILS 0.1 thou/uL (0.0-0.2); ABSOLUTE EOSINOPHILS 0.1 thou/uL (0.0-0.7); ABSOLUTE LYMPHOCYTES 2.1 thou/uL (0.8-5.3); ABSOLUTE MONOCYTES 0.5 thou/uL (0.0-1.2); ABSOLUTE NEUTROPHILS 4.8 thou/uL (1.6-8.1); BASOPHILS 1.3 %; EOSINOPHILS 1.8 %; HEMATOCRIT 39.7 % (42.0-52.0); HEMOGLOBIN 13.3 gm/dL (14.0-18.0); LYMPHOCYTES 27.5 %; MCH 27.4 pg (26.0-34.0); MCHC 33.3 g/dL (28.0-37.0); MCV 82.3 fL (80.0-100.0); MONOCYTES 6.5 %; NUCLEATED RBCS 0 /100WBC; PLATELET COUNT* 203 thou/uL (150-400); POLYS 62.9 %; RBC 4.83 mil/uL (4.50-6.00); RDW-CV 15.5 % (10.5-14.5); WBC 7.6 thou/uL (4.0-11.0)
[2021-06-04 16:14] LABS: POTASSIUM 3.4 mmol/L (3.5-5.1)
[2021-06-04 16:18] LABS: ALBUMIN 3.6 g/dL (3.4-5.0); TOTAL BILIRUBIN 0.5 mg/dL (<0.1-1.0); TOTAL PROTEIN 7.6 g/dL (6.4-8.2)
[2021-06-04 16:57] VITALS: BP 100/55
--- NOTE | 2021-06-05 11:50 | EKG ---
[place] [address] ELECTROCARDIOGRAM REPORT Name: TIGISTDARRYL ADAMS Room: [facility]#: [id number] Admission: 06/04/21 Attend Phys: Discharge: Date of : 62 Date of Service: 06/04/21 1529 Report #: [id number] THIS REPORT FOR: //name// [facility] ED Test Date: 2021-06-04 Test Time: 15:29:25 Pat Name: DARRYL MALLOY Department: Room: Gender: Residential Interior Designer: : 1960 Requested By: Katina Katz Order Number: [id number] MD: Kenan Helms Measurements Intervals [place] Rate: 83 P: 33 NE: 183 QRS: -47 QRSD: 86 T: 23 QT: 359 QTc: 422 Interpretive Statements Sinus rhythm VPCs Inferior infarct, old Compared to ECG 04/29/2021 08:16:55 Myocardial infarct finding now present Left-axis deviation no longer present Electronically Signed On 06-05-2021 11:50:06 CDT by Kenan Helms [email or web address] <ELECTRONICALLY SIGNED> By: Wyatt Helsm MD, [facility] 06/05/21 1150 1529 1529 Wyatt Helms MD, [facility] /EPI
== END ==
LOC: M.ERS 15:06
PROVIDERS: Physician Assistant
DX: T82.898A Other specified complication of vascular prosthetic devices, implants and grafts, initial encounter (principal); Z90.49 Acquired absence of other specified parts of digestive tract; Z79.82 Long term (current) use of aspirin; Z79.899 Other long term (current) drug therapy

== ENCOUNTER → 2021-06-07 | Outpatient (CLI) | payer OTHER | LOC: M.WC 13:39 | PROVIDERS: ATTEND Podiatrist Foot & Ankle Surgery | DX: T87.89 Other complications of amputation stump (principal); E11.621 Type 2 diabetes mellitus with foot ulcer; L97.512 Non-pressure chronic ulcer of other part of right foot with fat layer exposed; E11.42 Type 2 diabetes mellitus with diabetic polyneuropathy; Z79.84 Long term (current) use of oral hypoglycemic drugs; Y83.5 Amputation of limb(s) as the cause of abnormal reaction of the patient, or of later complication, without mention of misadventure at the time of the procedure ==

== ENCOUNTER → 2021-06-14 | Outpatient (CLI) | payer OTHER | LOC: M.WC 13:35 | PROVIDERS: ATTEND Podiatrist Foot & Ankle Surgery | DX: T87.89 Other complications of amputation stump (principal); E11.621 Type 2 diabetes mellitus with foot ulcer; L97.512 Non-pressure chronic ulcer of other part of right foot with fat layer exposed; E11.42 Type 2 diabetes mellitus with diabetic polyneuropathy; Z79.84 Long term (current) use of oral hypoglycemic drugs; Y83.5 Amputation of limb(s) as the cause of abnormal reaction of the patient, or of later complication, without mention of misadventure at the time of the procedure ==

== ENCOUNTER → 2021-06-21 | Outpatient (CLI) | payer OTHER | LOC: M.WC 13:23 | PROVIDERS: ATTEND Podiatrist Foot & Ankle Surgery | DX: T87.89 Other complications of amputation stump (principal); E11.621 Type 2 diabetes mellitus with foot ulcer; L97.512 Non-pressure chronic ulcer of other part of right foot with fat layer exposed; E11.42 Type 2 diabetes mellitus with diabetic polyneuropathy; Z79.84 Long term (current) use of oral hypoglycemic drugs; Y83.5 Amputation of limb(s) as the cause of abnormal reaction of the patient, or of later complication, without mention of misadventure at the time of the procedure ==

== ENCOUNTER → 2021-06-28 | Outpatient (CLI) | payer OTHER | LOC: M.WC 10:14 | PROVIDERS: ATTEND Podiatrist Foot & Ankle Surgery | DX: T87.89 Other complications of amputation stump (principal); E11.621 Type 2 diabetes mellitus with foot ulcer; L97.512 Non-pressure chronic ulcer of other part of right foot with fat layer exposed; E11.42 Type 2 diabetes mellitus with diabetic polyneuropathy; Z79.84 Long term (current) use of oral hypoglycemic drugs; Y83.5 Amputation of limb(s) as the cause of abnormal reaction of the patient, or of later complication, without mention of misadventure at the time of the procedure ==

== ENCOUNTER → 2021-07-05 | Outpatient (CLI) | payer OTHER | LOC: M.WC 13:00 | PROVIDERS: ATTEND Podiatrist Foot & Ankle Surgery | DX: T87.89 Other complications of amputation stump (principal); E11.621 Type 2 diabetes mellitus with foot ulcer; L97.512 Non-pressure chronic ulcer of other part of right foot with fat layer exposed; E11.42 Type 2 diabetes mellitus with diabetic polyneuropathy; Z79.84 Long term (current) use of oral hypoglycemic drugs; Y83.5 Amputation of limb(s) as the cause of abnormal reaction of the patient, or of later complication, without mention of misadventure at the time of the procedure ==

== ENCOUNTER → 2021-07-12 | Outpatient (CLI) | payer OTHER | LOC: M.WC 14:00 | PROVIDERS: ATTEND Podiatrist Foot & Ankle Surgery | DX: T87.89 Other complications of amputation stump (principal); E11.621 Type 2 diabetes mellitus with foot ulcer; L97.512 Non-pressure chronic ulcer of other part of right foot with fat layer exposed; E11.42 Type 2 diabetes mellitus with diabetic polyneuropathy; Z79.84 Long term (current) use of oral hypoglycemic drugs; Y83.5 Amputation of limb(s) as the cause of abnormal reaction of the patient, or of later complication, without mention of misadventure at the time of the procedure ==

== ENCOUNTER → 2021-08-02 | Outpatient (CLI) | payer OTHER | LOC: M.WC 14:38 | PROVIDERS: ATTEND Podiatrist Foot & Ankle Surgery | DX: T87.89 Other complications of amputation stump (principal); E11.621 Type 2 diabetes mellitus with foot ulcer; L97.512 Non-pressure chronic ulcer of other part of right foot with fat layer exposed; E11.42 Type 2 diabetes mellitus with diabetic polyneuropathy; Z79.84 Long term (current) use of oral hypoglycemic drugs; Y83.5 Amputation of limb(s) as the cause of abnormal reaction of the patient, or of later complication, without mention of misadventure at the time of the procedure ==

== ENCOUNTER → 2021-08-09 | Outpatient (CLI) | payer OTHER | LOC: M.WC 14:39 | PROVIDERS: ATTEND Podiatrist Foot & Ankle Surgery | DX: T87.89 Other complications of amputation stump (principal); E11.621 Type 2 diabetes mellitus with foot ulcer; L97.512 Non-pressure chronic ulcer of other part of right foot with fat layer exposed; E11.42 Type 2 diabetes mellitus with diabetic polyneuropathy; Z79.84 Long term (current) use of oral hypoglycemic drugs; Y83.5 Amputation of limb(s) as the cause of abnormal reaction of the patient, or of later complication, without mention of misadventure at the time of the procedure ==

== ENCOUNTER → 2021-08-16 | Outpatient (CLI) | payer OTHER | LOC: M.WC 14:52 | PROVIDERS: ATTEND Podiatrist Foot & Ankle Surgery | DX: T87.89 Other complications of amputation stump (principal); E11.621 Type 2 diabetes mellitus with foot ulcer; L97.512 Non-pressure chronic ulcer of other part of right foot with fat layer exposed; E11.42 Type 2 diabetes mellitus with diabetic polyneuropathy; Z79.84 Long term (current) use of oral hypoglycemic drugs; Y83.5 Amputation of limb(s) as the cause of abnormal reaction of the patient, or of later complication, without mention of misadventure at the time of the procedure ==

== ENCOUNTER → 2021-08-23 | Outpatient (CLI) | payer OTHER | LOC: M.WC 13:28 | PROVIDERS: ATTEND Podiatrist Foot & Ankle Surgery | DX: T87.89 Other complications of amputation stump (principal); E11.621 Type 2 diabetes mellitus with foot ulcer; L97.512 Non-pressure chronic ulcer of other part of right foot with fat layer exposed; E11.42 Type 2 diabetes mellitus with diabetic polyneuropathy; Z79.84 Long term (current) use of oral hypoglycemic drugs; Y83.5 Amputation of limb(s) as the cause of abnormal reaction of the patient, or of later complication, without mention of misadventure at the time of the procedure ==

== ENCOUNTER → 2021-08-30 | Outpatient (CLI) | payer OTHER | LOC: M.WC 14:35 | PROVIDERS: ATTEND Podiatrist Foot & Ankle Surgery | DX: T87.89 Other complications of amputation stump (principal); E11.621 Type 2 diabetes mellitus with foot ulcer; L97.512 Non-pressure chronic ulcer of other part of right foot with fat layer exposed; E11.42 Type 2 diabetes mellitus with diabetic polyneuropathy; L02.611 Cutaneous abscess of right foot; Z79.84 Long term (current) use of oral hypoglycemic drugs; Z79.01 Long term (current) use of anticoagulants; Z79.899 Other long term (current) drug therapy; Y83.5 Amputation of limb(s) as the cause of abnormal reaction of the patient, or of later complication, without mention of misadventure at the time of the procedure ==

== ENCOUNTER → 2021-09-06 | Outpatient (CLI) | payer OTHER | LOC: M.WC 13:54 | PROVIDERS: ATTEND Podiatrist Foot & Ankle Surgery | DX: T87.89 Other complications of amputation stump (principal); E11.621 Type 2 diabetes mellitus with foot ulcer; L97.512 Non-pressure chronic ulcer of other part of right foot with fat layer exposed; E11.42 Type 2 diabetes mellitus with diabetic polyneuropathy; Z79.84 Long term (current) use of oral hypoglycemic drugs; Z79.01 Long term (current) use of anticoagulants; Z79.899 Other long term (current) drug therapy; Y83.5 Amputation of limb(s) as the cause of abnormal reaction of the patient, or of later complication, without mention of misadventure at the time of the procedure ==

== ENCOUNTER → 2021-09-13 | Outpatient (CLI) | payer OTHER | LOC: M.WC 15:00 | PROVIDERS: ATTEND Podiatrist Foot & Ankle Surgery | DX: T87.89 Other complications of amputation stump (principal); E11.621 Type 2 diabetes mellitus with foot ulcer; L97.512 Non-pressure chronic ulcer of other part of right foot with fat layer exposed; E11.42 Type 2 diabetes mellitus with diabetic polyneuropathy; Z79.84 Long term (current) use of oral hypoglycemic drugs; Z79.01 Long term (current) use of anticoagulants; Y83.5 Amputation of limb(s) as the cause of abnormal reaction of the patient, or of later complication, without mention of misadventure at the time of the procedure ==

== ENCOUNTER → 2021-09-20 | Outpatient (CLI) | payer OTHER | LOC: M.WC 13:50 | PROVIDERS: ATTEND Podiatrist Foot & Ankle Surgery | DX: T87.89 Other complications of amputation stump (principal); E11.621 Type 2 diabetes mellitus with foot ulcer; L97.512 Non-pressure chronic ulcer of other part of right foot with fat layer exposed; E11.42 Type 2 diabetes mellitus with diabetic polyneuropathy; Z79.01 Long term (current) use of anticoagulants; Z79.84 Long term (current) use of oral hypoglycemic drugs; Z79.899 Other long term (current) drug therapy; Y83.5 Amputation of limb(s) as the cause of abnormal reaction of the patient, or of later complication, without mention of misadventure at the time of the procedure ==

== ENCOUNTER → 2021-09-27 | Outpatient (CLI) | payer OTHER | LOC: M.WC 14:46 | PROVIDERS: ATTEND Podiatrist Foot & Ankle Surgery | DX: T87.89 Other complications of amputation stump (principal); E11.621 Type 2 diabetes mellitus with foot ulcer; L97.512 Non-pressure chronic ulcer of other part of right foot with fat layer exposed; E11.42 Type 2 diabetes mellitus with diabetic polyneuropathy; Z79.01 Long term (current) use of anticoagulants; Z79.84 Long term (current) use of oral hypoglycemic drugs; Y83.5 Amputation of limb(s) as the cause of abnormal reaction of the patient, or of later complication, without mention of misadventure at the time of the procedure ==

== ENCOUNTER → 2021-10-04 | Outpatient (CLI) | payer OTHER | LOC: M.WC 14:29 | PROVIDERS: ATTEND Podiatrist Foot & Ankle Surgery | DX: T87.89 Other complications of amputation stump (principal); E11.621 Type 2 diabetes mellitus with foot ulcer; L97.512 Non-pressure chronic ulcer of other part of right foot with fat layer exposed; E11.42 Type 2 diabetes mellitus with diabetic polyneuropathy; Z79.01 Long term (current) use of anticoagulants; Z79.84 Long term (current) use of oral hypoglycemic drugs; Y83.5 Amputation of limb(s) as the cause of abnormal reaction of the patient, or of later complication, without mention of misadventure at the time of the procedure ==

== ENCOUNTER → 2021-10-11 | Outpatient (CLI) | payer OTHER | LOC: M.WC 14:22 | PROVIDERS: ATTEND Podiatrist Foot & Ankle Surgery | DX: T87.89 Other complications of amputation stump (principal); E11.621 Type 2 diabetes mellitus with foot ulcer; L97.512 Non-pressure chronic ulcer of other part of right foot with fat layer exposed; L84 Corns and callosities; E11.42 Type 2 diabetes mellitus with diabetic polyneuropathy; Z79.01 Long term (current) use of anticoagulants; Z79.84 Long term (current) use of oral hypoglycemic drugs; Y83.5 Amputation of limb(s) as the cause of abnormal reaction of the patient, or of later complication, without mention of misadventure at the time of the procedure ==

== ENCOUNTER → 2021-10-18 | Outpatient (CLI) | payer OTHER | LOC: M.WC 13:25 | PROVIDERS: ATTEND Podiatrist Foot & Ankle Surgery | DX: T87.89 Other complications of amputation stump (principal); E11.621 Type 2 diabetes mellitus with foot ulcer; L97.512 Non-pressure chronic ulcer of other part of right foot with fat layer exposed; L84 Corns and callosities; E11.42 Type 2 diabetes mellitus with diabetic polyneuropathy; Z79.01 Long term (current) use of anticoagulants; Z79.84 Long term (current) use of oral hypoglycemic drugs; Y83.5 Amputation of limb(s) as the cause of abnormal reaction of the patient, or of later complication, without mention of misadventure at the time of the procedure ==

== ENCOUNTER → 2021-10-25 | Outpatient (CLI) | payer OTHER | LOC: M.WC 14:49 | PROVIDERS: ATTEND Podiatrist Foot & Ankle Surgery | DX: T87.89 Other complications of amputation stump (principal); E11.621 Type 2 diabetes mellitus with foot ulcer; L97.512 Non-pressure chronic ulcer of other part of right foot with fat layer exposed; L84 Corns and callosities; E11.42 Type 2 diabetes mellitus with diabetic polyneuropathy; Z79.01 Long term (current) use of anticoagulants; Z79.84 Long term (current) use of oral hypoglycemic drugs; Y83.5 Amputation of limb(s) as the cause of abnormal reaction of the patient, or of later complication, without mention of misadventure at the time of the procedure ==

== ENCOUNTER → 2021-11-01 | Outpatient (CLI) | payer OTHER | LOC: M.WC 14:39 | PROVIDERS: ATTEND Podiatrist Foot & Ankle Surgery | DX: T87.89 Other complications of amputation stump (principal); E11.621 Type 2 diabetes mellitus with foot ulcer; L97.512 Non-pressure chronic ulcer of other part of right foot with fat layer exposed; L84 Corns and callosities; E11.42 Type 2 diabetes mellitus with diabetic polyneuropathy; Z79.01 Long term (current) use of anticoagulants; Z79.84 Long term (current) use of oral hypoglycemic drugs; Y83.5 Amputation of limb(s) as the cause of abnormal reaction of the patient, or of later complication, without mention of misadventure at the time of the procedure ==

== ENCOUNTER → 2021-11-08 | Outpatient (CLI) | payer OTHER | LOC: M.WC 11:16 | PROVIDERS: ATTEND Podiatrist Foot & Ankle Surgery | DX: E11.621 Type 2 diabetes mellitus with foot ulcer (principal); L97.512 Non-pressure chronic ulcer of other part of right foot with fat layer exposed; L84 Corns and callosities; E11.42 Type 2 diabetes mellitus with diabetic polyneuropathy; Z79.01 Long term (current) use of anticoagulants; Z79.84 Long term (current) use of oral hypoglycemic drugs ==